=== PATIENT | female | born 1950 | race Caucasian/White ===

== ENCOUNTER 2017-09-01 13:21 | Outpatient (CLI) | payer OTHER | END 2017-09-01 13:22 | disposition home or self-care (01) | LOC: BICMAMMO 13:21 | PROVIDERS: ATTEND Obstetrics & Gynecology | DX: Z12.31 Encounter for screening mammogram for malignant neoplasm of breast (principal); Z80.3 Family history of malignant neoplasm of breast | CPT/HCPCS: 77063; 77067 ==

== ENCOUNTER 2018-07-21 07:58 | Outpatient (CLI) | payer OTHER ==
--- NOTE | 2018-07-21 10:07 | ULT ---
PELVIC ULTRASOUND: History: Right lower quadrant pain. Technique: Multiple longitudinal and transverse images of the pelvis obtained using a multihertz curv ilinear transabdominal as well as multihertz endovaginal transducers. FINDINGS: Real-time, color flow, and spectral waveform doppler analysis demonstrates the uterus to measure 5.0 x 1.9 x 3.1 cm. No evidence of uterine masses or lesions seen. The endometrium is of normal thickness measuring 1 mm. No evidence of free pelvic fluid seen. Both ovaries visualized with good blood flow. Right ovary measures 1.4 x 1.1 x 1.7 cm while the left ovary measures 0.8 x 1.3 x 1.0 cm. IMPRESSION: Normal pelvic ultrasound. POS: [facility]
== END 2018-07-21 07:59 | disposition home or self-care (01) ==
LOC: SCSULT 07:58
PROVIDERS: ATTEND Family Medicine
DX: R10.9 Unspecified abdominal pain (principal)
CPT/HCPCS: 76856

== ENCOUNTER 2018-08-14 07:52 | Outpatient (CLI) | payer OTHER ==
--- NOTE | 2018-08-14 10:47 | CT ---
CT OF THE ABDOMEN AND PELVIS WITH CONTRAST: Comparison: None. History: Low abdominal pain. Technique: Multiple contiguous axial images were obtained in a CT of the abdomen and pelvis with cont rast. PO contrast was administered. Coronal reformats were performed. FINDINGS: There is an 8-9 mm calcification in the right renal pelvis. There is mild right sided hydronephrosis. No other calcification was seen in the kidney or ureter. There is a subcentimeter hypodensity in the right lobe of the liver which may represent a cyst. The gallbladder, adrenal glands, spleen, and steel creas are unremarkable. No free air, free fluid, or stranding changes are seen in the abdomen or pelvis. The reproductive org ans are unremarkable. There is scattered diverticula in the colon. The small bowel is unremarkable. Atherosclerotic calcifi cations are seen in the aorta. No abdominal or pelvic lymphadenopathy are seen. A moderate hiatal her marino is seen. IMPRESSION: 1. Right renal pelvis calcification with mild right hydronephrosis. 2. Diverticulosis. POS: [facility]
== END 2018-08-14 07:53 | disposition home or self-care (01) ==
LOC: SCSCT 07:52
PROVIDERS: ATTEND Family Medicine
DX: R10.9 Unspecified abdominal pain (principal); K57.90 Diverticulosis of intestine, part unspecified, without perforation or abscess without bleeding; N28.89 Other specified disorders of kidney and ureter; N13.30 Unspecified hydronephrosis
CPT/HCPCS: 74177; 82565

== ENCOUNTER 2018-11-30 14:22 | Outpatient (CLI) | payer OTHER ==
--- NOTE | 2018-11-30 15:57 | MMO ---
Bilateral MAMMO Bilat Screen [facility]. CLINICAL HISTORY: Patient is 68 years old and is seen for screening. The patient has the following family history of breast cancer: cousin female. The patient has no personal history of cancer. VIEWS: The views performed were: bilateral craniocaudal with tomosynthesis and bilateral mediolateral oblique with tomosynthesis. FILMS COMPARED: The present examination has been compared to prior imaging studies performed at [facility] on 08/14/2016 and 09/01/2017, and at [facility] on 08/01/2010, 08/07/2011, 08/13/2012, 08/25/2012, 01/24/2014 and 05/29/2015. MAMMOGRAM FINDINGS: There are scattered fibroglandular densities. There are no suspicious masses, suspicious calcifications, or new areas of architectural distortion. IMPRESSION: THERE IS NO MAMMOGRAPHIC EVIDENCE OF MALIGNANCY. A ROUTINE FOLLOW-UP MAMMOGRAM IN 1 YEAR IS RECOMMENDED. THE RESULTS OF THIS EXAM WERE SENT TO THE PATIENT. ACR BI-RADS Category 1 - Negative MAMMOGRAPHY NOTE: 1. A negative mammogram report should not delay a biopsy if a dominant of clinically suspicious mass is present. 2. Approximately 10% to 15% of breast cancers are not detected by mammography. 3. Adenosis and dense breasts may obscure an underlying neoplasm.
== END 2018-11-30 14:23 | disposition home or self-care (01) ==
LOC: BICMAMMO 14:22
PROVIDERS: ATTEND Obstetrics & Gynecology
DX: Z12.31 Encounter for screening mammogram for malignant neoplasm of breast (principal); Z80.3 Family history of malignant neoplasm of breast
CPT/HCPCS: 77063; 77067

== ENCOUNTER 2019-01-18 13:02 | Outpatient (CLI) | payer OTHER ==
--- NOTE | 2019-01-18 13:35 | CT ---
CT Stone Protocol: 01/18/2019 12:00 AM HISTORY: Kidney stones COMPARISON: 08/06/2018 Procedure: Multiple contiguous axial images were obtained and a CT of the abdomen and pelvis without IV contrast . Coronal reformats were performed. FINDINGS: This examination is limited for the evaluation of solid organs and vascular structures due to the lac k of intravenous contrast. Lower Chest: within normal limits. Abdomen: Liver: within normal limits. Bile Ducts: Normal caliber. Gallbladder: No calcified gallstones. Normal caliber wall. Pancreas: within normal limits. Spleen: within normal limits. Adrenals: within normal limits. Kidneys: There is an 11 mm calcification in the right renal pelvis. This has enlarged compared to the prior examination. No other renal calcifications are seen on either side. Pelvis: Reproductive Organs: Bilateral tubal ligation clips Ureters: within normal limits. Bladder: within normal limits. Bowel: Normal caliber. Mesenteric Lymph Nodes: No enlarged mesenteric lymph nodes. Peritoneum: No ascites or free air, no fluid collection. Vessels: Atherosclerotic calcifications in the aorta Retroperitoneum: within normal limits. Abdominal Wall: within normal limits. Bones: Degenerative changes in the spine. IMPRESSION: Right renal pelvis calcification
== END 2019-01-18 13:03 | disposition home or self-care (01) ==
LOC: SCSCT 13:02
PROVIDERS: ATTEND Urology
DX: N20.0 Calculus of kidney (principal); N13.39 Other hydronephrosis; N28.89 Other specified disorders of kidney and ureter
CPT/HCPCS: 74176

== ENCOUNTER 2019-03-17 08:43 | Outpatient (CLI) | payer OTHER ==
--- NOTE | 2019-03-17 09:01 | RAD ---
XR Chest Pa Lat STANDARD HISTORY: Cough COMPARISON: 09/23/2012 FINDINGS: There are changes of median sternotomy. The heart size is normal. The lungs are well expand ed without focal areas of consolidation, pneumothorax or pleural effusions. Degenerative changes are present in the spine. IMPRESSION: No radiographic evidence of acute cardiopulmonary process.
[2019-03-17 09:33] LABS: Anion Gap 13 mmol/L (10-20); BUN (Urea Nitrogen) 11 mg/dL (9.8-20.1); Calc. Creatinine Clearance 0 mL/min (70-130); Carbon Dioxide 26 mmol/L (23-31); Chloride 109 mmol/L (98-107); Estimated GFR-MDRD 70; Glucose 99 mg/dL (80-115); Potassium 3.7 mmol/L (3.5-5.1); Sodium 144 mmol/L (136-145)
== END 2019-03-17 08:44 | disposition home or self-care (01) ==
LOC: SCSRAD 08:43
PROVIDERS: ATTEND Family Medicine
DX: I25.10 Atherosclerotic heart disease of native coronary artery without angina pectoris (principal); R05 Cough
CPT/HCPCS: 36415; 71046; 80048

== ENCOUNTER 2019-05-17 09:43 | Outpatient (CLI) | payer OTHER ==
[2019-05-17 11:35] LABS: Hemoglobin 13.9 g/dL (12.0-16.0); Mean Corpuscular HGB CONC 34.2 g/dL (32.0-36.0); Mean Corpuscular Hemoglobin 29.8 pg (27.0-31.0); Mean Corpuscular Volume 87.2 fL (78.0-98.0); Mean Platelet Volume 7.1 fL (7.4-10.4); Platelet Count 187 thou/uL (130-400); Red Blood Cell (RBC) Count 4.68 mill/uL (4.20-5.40); White Blood Cell (WBC) Count 5.4 thou/uL (4.8-10.8)
[2019-05-17 11:41] LABS: PTT 25.4 SEC (22.9-36.1); Prothrombin Time 12.9 SEC (12.0-14.7)
[2019-05-17 11:45] LABS: Anion Gap 11 mmol/L (10-20); BUN (Urea Nitrogen) 13 mg/dL (9.8-20.1); Calc. Creatinine Clearance 0 mL/min (70-130); Calcium 10.2 mg/dL (7.8-10.44); Carbon Dioxide 25 mmol/L (23-31); Chloride 107 mmol/L (98-107); Estimated GFR-MDRD 65; Glucose 97 mg/dL (80-115); Potassium 3.9 mmol/L (3.5-5.1); Sodium 139 mmol/L (136-145)
[2019-05-17 12:21] LABS: Bacteria/HPF None Seen HPF (None Seen); Bilirubin Negative (Negative); Blood, Urine Negative (Negative); Calcium Oxalate Crystals Rare HPF (None Seen); Clarity Clear (Clear); Glucose, Urine (Dipstick) Normal (Negative); Leukocyte Negative Leu/uL (Negative); Nitrite Negative (Negative); Protein, Urine (Dipstick) 10 mg/dL (Neg-Trace); RBC/HPF 0-3 HPF (0-3); Squamous Epithelial 0-3 HPF (0-3); Urobilinogen Normal mg/dL (Less than 2); WBC/HPF 0-3 HPF (0-3)
--- NOTE | 2019-05-19 19:48 | EKG ---
Test Reason : Blood Pressure : / mmHG Vent. Rate : 060 BPM Atrial Rate : 060 BPM P-R Int : 158 ms QRS Dur : 096 ms QT Int : 430 ms P-R-T Axes : 061 146 232 degrees QTc Int : 430 ms Normal sinus rhythm Right axis deviation Low voltage QRS Poor R wave progression Abnormal ECG When compared with ECG of 06-DEC-2011 19:15, QRS axis Shifted right ST now depressed in Inferior leads T wave inversion now evident in Inferior leads Confirmed by MERY HASSAN, SVelia ([id number]) on 05/19/2019 7:48:17 PM Referred By: KADIE Confirmed By:DR. Vera ORDONEZ MD
== END 2019-05-17 09:44 | disposition home or self-care (01) ==
LOC: LABBT 09:43
PROVIDERS: ATTEND Urology
DX: Z01.818 Encounter for other preprocedural examination (principal); N20.0 Calculus of kidney; N13.39 Other hydronephrosis
CPT/HCPCS: 80048; 81001; 85027; 85610; 85730; 87086; 93005; 93010

== ENCOUNTER 2019-05-27 06:05 | Day surgery (SDC) | payer OTHER ==
[2019-05-17 10:16] VITALS: BMI 32.2
[2019-05-27] MEDS ORDERED: Levofloxacin 500 mg/D5W 100 ml Premix Bag ONE (06:20)
[2019-05-27] MEDS ORDERED: Iothalamate Meglumine 60% 50 ML VIAL FS ONE (06:55)
[2019-05-27] MEDS ORDERED: Fentanyl 100 MCG/2 ML VIAL ONE (07:10)
--- NOTE | 2019-05-27 12:12 | OP ---
DATE OF PROCEDURE: 05/27/2019 SERVICE: Urology PREOPERATIVE DIAGNOSIS: Right renal stone. POSTOPERATIVE DIAGNOSIS: Right phlebolith. PROCEDURE PERFORMED: Diagnostic ureteroscopy with placement of a 6 x 26 double J-stent. INDICATIONS FOR PROCEDURE: Ms. Galloway is a 69-year-old white female, who initially had presented to me with what appeared to be a right renal stone. She was asymptomatic, so we had followed this for approximately one year, but on repeat imaging, the stone appeared to have grown approximately 2 to 3 mm. As such, we elected to go ahead and proceed with ureteroscopy and laser lithotripsy with all risks and benefits discussed and she has agreed to proceed forward. DESCRIPTION OF PROCEDURE: After identification of armband and verification of consent, the patient was brought back to the operating room, where she underwent general anesthesia with endotracheal intubation. She was then placed in dorsal lithotomy position and prepped and draped in usual sterile fashion. After appropriate time-out, a lubricated 22-Ukrainian rigid cystoscope was introduced per urethra into the bladder and attention turned to the right ureteral orifice, which was cannulated with a 0.035 Sensor wire up to the level of the renal pelvis. The cystoscope was then removed and a dual-lumen catheter was advanced over the Sensor wire up to the level of the proximal ureter. An Amplatz Super Stiff wire was then placed through the second lumen up to the level of renal pelvis and the dual-lumen removed. The Sensor wire was then affixed to the drapes as a safety wire. An 11/13 x 36 cm ureteral access sheath was advanced over the Super Stiff wire with ease up to the level of the proximal ureter. The inner cannula and the Super Stiff wire were then removed leaving the outer sheath and Sensor wire in place as a safety wire. A disposable ureteroscope was then used to go up the ureteral access sheath to the UPJ, where no stone was encountered. This had previously been where the stone was seen on the CT. Full pyeloscopy was performed in all calices, renal pelvis, and every space that I could find and no stone was identified. The CT imaging was reviewed again and it did show the stone what looked like the UPJ. Again, reinspection of that area did not demonstrate any stones. After looking for approximately 10 to 15 minutes, I decided that there was definitively no stone within the renal collecting system or ureter. Pull-back ureteroscopy was employed. No additional stones were seen within the ureter. The ureteroscope and sheath were then removed and a cystoscope was backloaded over the Sensor wire back in the bladder. A 6 x 26 double-J stent with string attached was advanced over the Sensor wire up to the level of the renal pelvis and the wire removed, leaving a good curl in the kidney and a good curl in the bladder. The bladder was then emptied and the cystoscope removed. The string was then affixed to the patient's inner thigh with an OpSite. The patient was then taken out of positioning, awakened and taken to PACU for recovery in stable condition. Of note, on reviewing the images postoperatively while the sagittal sections do show the stone what appears to be within the renal pelvis; on coronal sections on close inspection, the stone is actually superior to the renal pelvis, likely inside of the vein, indicating that this is indeed a phlebolith and not ureteral or renal stone. As such, the patient never did have a stone and just has a vascular calcification, which will not need any further treatment or followup. COMPLICATIONS: None. ESTIMATED BLOOD LOSS: Minimal. RETAINED TUBES AND DRAINS: 6 x 26 double J-stent on the right. SPECIMENS: None. DISPOSITION: The patient will be discharged home and follow up with me in approximately 2 weeks. She can remove her stent on Friday by gently pulling the string. Job ID: [id number]
== END 2019-05-27 10:45 | disposition home or self-care (01) ==
LOC: SDC 06:05
PROVIDERS: ATTEND Urology
PROC: 0T9680Z Drainage of Right Ureter with Drainage Device, Via Natural or Artificial Opening Endoscopic (ICD-10-PCS; principal; 2019-05-27)
DX: I87.8 Other specified disorders of veins (principal); N13.30 Unspecified hydronephrosis; I10 Essential (primary) hypertension; K21.9 Gastro-esophageal reflux disease without esophagitis; F32.9 Major depressive disorder, single episode, unspecified; Z88.1 Allergy status to other antibiotic agents; Z88.8 Allergy status to other drugs, medicaments and biological substances; Z95.1 Presence of aortocoronary bypass graft
CPT/HCPCS: 76000; C1758; C1769; J0131; J1956; J3010

== ENCOUNTER 2020-03-06 14:03 | Outpatient (CLI) | payer BC ==
--- NOTE | 2020-03-06 14:29 | MMO ---
Bilateral MAMMO Bilat Screen [facility]. CLINICAL HISTORY: Patient is 70 years old and is seen for screening. The patient has the following family history of breast cancer: cousin female. The patient has no personal history of cancer. VIEWS: The views performed were: bilateral craniocaudal with tomosynthesis and bilateral mediolateral oblique with tomosynthesis. FILMS COMPARED: The present examination has been compared to prior imaging studies performed at [facility] on 08/14/2016, 09/01/2017 and 11/30/2018, and at [facility] on 05/29/2015. This study has been interpreted with the assistance of computer-aided detection. MAMMOGRAM FINDINGS: There are scattered fibroglandular densities. There are no suspicious masses, suspicious calcifications, or new areas of architectural distortion. IMPRESSION: THERE IS NO MAMMOGRAPHIC EVIDENCE OF MALIGNANCY. A ROUTINE FOLLOW-UP MAMMOGRAM IN 1 YEAR IS RECOMMENDED. THE RESULTS OF THIS EXAM WERE SENT TO THE PATIENT. ACR BI-RADS Category 1 - Negative MAMMOGRAPHY NOTE: 1. A negative mammogram report should not delay a biopsy if a dominant of clinically suspicious mass is present. 2. Approximately 10% to 15% of breast cancers are not detected by mammography. 3. Adenosis and dense breasts may obscure an underlying neoplasm. Reported by: NILAY ANDREWS MD Electonically Signed: [id number]
== END 2020-03-06 14:04 | disposition home or self-care (01) ==
LOC: BICMAMMO 14:03
PROVIDERS: ATTEND Obstetrics & Gynecology
DX: Z12.31 Encounter for screening mammogram for malignant neoplasm of breast (principal); Z80.3 Family history of malignant neoplasm of breast
CPT/HCPCS: 77063; 77067

== ENCOUNTER 2022-11-01 14:42 | Outpatient (CLI) | payer MEDICARE | END 2022-11-01 14:43 | disposition home or self-care (01) | LOC: SCSRAD 14:42 | PROVIDERS: ATTEND Family Medicine | DX: R05.9 Cough, unspecified (principal); K44.9 Diaphragmatic hernia without obstruction or gangrene | CPT/HCPCS: 71046 ==

== ENCOUNTER 2024-01-07 09:55 | Day surgery (SDC) | payer MEDICARE ==
[2024-01-05 12:12] VITALS: BMI 32.5
[2024-01-07] MEDS ORDERED: EPINEPHrine 1 MG/ML VIAL ONE (13:22)
[2024-01-07] MEDS ORDERED: Lidocaine 1% (PF) 30 ML VIAL ONE (13:22)
[2024-01-07] MEDS ORDERED: fentaNYL PF 100 MCG/2 ML SYRINGE ONE ×2 (13:45→14:28)
[2024-01-07] MEDS ORDERED: PHENYLEPHRINE-NS 100 MCG/ML 10 ML SYRINGE ONE (13:46)
[2024-01-07] MEDS ORDERED: PROPOFOL 200 MG/20 ML VIAL ONE (14:08)
[2024-01-07] MEDS ORDERED: SUCCINYLCHOLINE/SOD CL,ISO/PF 200 MG/10 ML SYRINGE FS ONE (14:08)
[2024-01-07] MEDS ORDERED: Lidocaine 1% PF 5 ML VIAL ONE (14:17)
[2024-01-07] MEDS ORDERED: Rocuronium Bromide 10 MG/ML (10ML VIAL) ONE (14:17)
[2024-01-07] MEDS ORDERED: Dexmedetomidine 200 MCG/2 ML VIAL ONE (14:17)
[2024-01-07] MEDS ORDERED: Dexamethasone 20 MG/5 ML VIAL ONE (14:17)
[2024-01-07] MEDS ORDERED: Ondansetron PF 4 MG/2 ML Vial ONE (14:17)
[2024-01-07] MEDS ORDERED: HYDROcodone/Acetaminophen 5/325 mg Tablet ONE (16:40)
== END 2024-01-07 16:50 | disposition home or self-care (01) ==
LOC: SDC 09:55
PROVIDERS: ATTEND Otolaryngology Plastic Surgery within the Head & Neck
PROC: 0GTN0ZZ Resection of Right Inferior Parathyroid Gland, Open Approach (ICD-10-PCS; principal; 2024-01-07)
DX: D35.1 Benign neoplasm of parathyroid gland (principal); E21.3 Hyperparathyroidism, unspecified; F32.A Depression, unspecified; K21.9 Gastro-esophageal reflux disease without esophagitis; Z98.51 Tubal ligation status; Z98.890 Other specified postprocedural states; Z88.1 Allergy status to other antibiotic agents; Z88.8 Allergy status to other drugs, medicaments and biological substances; J30.9 Allergic rhinitis, unspecified
CPT/HCPCS: 60500; C1889; J0171; 88305; J1100; J2001; J2405; J2704